=== PATIENT | female | born 1985 | race African-American/Black ===

== ENCOUNTER → 2017-01-19 | Outpatient (CLI) | payer OTHER | LOC: FIMAGING 14:23 | PROVIDERS: ATTEND Advanced Practice Midwife | DX: N63 Unspecified lump in breast (principal) ==

== ENCOUNTER → 2017-10-19 | Outpatient (CLI) | payer OTHER | LOC: FIMAGING 07:34 | PROVIDERS: ATTEND Internal Medicine Endocrinology, Diabetes & Metabolism | DX: E04.9 Nontoxic goiter, unspecified (principal) ==

== ENCOUNTER 2017-12-09 08:48 | Emergency (ER) | payer OTHER ==
[2017-12-09] MEDS ORDERED: NS 1,000 ML IV ONE ×3 (09:03→10:58)
[2017-12-09] MEDS ORDERED: IPRATROPIUM/ALBUTEROL 3 ML DEYVIAL IH ONE (09:03)
--- NOTE | 2017-12-09 09:12 | EDPHY ---
General Time Seen by Provider: 12/09/17 09:00 Narrative: CHIEF COMPLAINT: Cough, chest pain, fever, body aches HISTORY OF PRESENT ILLNESS: Patient complains of sudden onset of cough, chest pain, fever, body aches, sore throat, runny nose. Symptoms started abruptly last night. Was described as a painful cough last night, but awoke to chest pains and persistent cough this morning. No neck pain or stiffness. Occasional headache with the cough a when her temperature seems to go up. She has nausea but no vomiting. No urinary complaints. No rash. No abdominal pain. No trauma or injury. She does have a child with similar symptoms over the past week. No other associated complaints or modifying factors. REVIEW OF SYSTEMS: Ten systems reviewed and are negative unless otherwise noted in the HPI PCP: Dr. Cao SPECIALISTS: None PAST MEDICAL HISTORY: Denies any medical history. PAST SURGICAL HISTORY: No surgical history. SOCIAL HISTORY: Nonsmoker. Lives and works here locally FAMILY HISTORY: Noncontributory EXAMINATION General Appearance: Alert, no distress Head: normocephalic, atraumatic Eyes: Pupils equal and round, no conjunctival pallor or injection ENT, Mouth: Mucous membranes moist. Uvula is midline. There is no erythema or edema. Airway is widely patent. Neck: Normal inspection, supple, non-tender. No meningeal signs Respiratory: Lungs are clear to auscultation Cardiovascular: Tachycardic rate. Regular rhythm. No murmur. Good signs of perfusion Gastrointestinal: Abdomen is soft and nontender. No tympany. No rigidity. No guarding. Back: non-tender, no bony abnormalities Neurological: GCS 15. A&O, nonfocal, normal gait. Strength is symmetric in the limbs Skin: Warm and dry, no rash no petechiae or purpura Extremities: Nontender, no pedal edema. Symmetric range of motion of the upper lower extremities Psychiatric: Mood and affect normal DIFFERENTIAL DIAGNOSES: Including but not limited to influenza, bronchitis, pneumonia upper respiratory infection, lower respiratory infection, pleurisy MDM: 9:05 a.m. Flu-like symptoms with auscultation that suggest possible pneumonia on the right side. She is tachycardic but she is not febrile or hypoxemic. Respiratory rate is normal. Laboratory studies ordered. IV fluid ordered. EKG ordered. Chest x-ray ordered. She is in no acute distress and does not require supplemental oxygen. 9:30 a.m. EKG reveals sinus tachycardia. No ischemia or ST elevation. CBC reveals no leukocytosis but does have a shift consistent with viral illness. Remainder of labs pending. Chest x-ray as read by me reveals no pneumonia. 9:40 a.m. Patient re-evaluated. She remains tachycardic with IV fluid infusing. No acute distress. Chemistry returns with mild hypokalemia. 10:00 a.m. Patient is positive for influenza A. I have re-evaluated. She is complaining of back pain. She informs me that she cannot take pills, thus I have ordered IV Toradol as well Klor packets (40meq). Second L IV fluid ordered. 10:25 a.m. Chest x-ray has been read by radiologist as no focal pneumonia. She continues to receive IV fluid. 11:00 a.m. Patient re-evaluated. Second L of IV fluid complete. Heart rate is 120 beats per minute. Her back pain is now resolved. She has also received 40 mEq of p.o. Klor. She appears to be somewhat anxious about this. We discussed the nature of influenza, Tamiflu and symptomatic care. She does not want to take the Tamiflu. We discussed 3 L of IV fluid. 11:30 a.m. Patient re-evaluated. Third L IV fluid infusing. She is starting to feel better. I discussed this case with Dr. Blair. Patient does have a cause for her tachycardia with influenza. We are in agreement that she does not warrant any further testing at this time. I discussed with the patient discharged home with symptomatic care. Because she does not take pills, we discussed taking liquid Tylenol and ibuprofen. I provided short course of antitussive medication. We discussed ED precautions. We discussed improving her food intake due to the mild hypokalemia. We discussed follow up with primary care physician. She is discharged home stable condition. EKG interpretation: Dr. Blair Sinus tachycardia. No ST elevation SUPERVISION: Patient was independently examined, but I discussed the case with my secondary supervising physician Dr. Blair - Diagnostics Imaging Results: Imaging Impressions Chest X-Ray 12/09/17 09:02 Impression: No focal pneumonia. - History Smoking Status: Never smoked - Objective Vital Signs: Initial Vital Signs Temperature (C) 98.4 F 12/09/17 08:51 Heart Rate 139 H 12/09/17 08:51 Respiratory Rate 18 12/09/17 08:51 Blood Pressure 100/77 12/09/17 08:51 O2 Sat (%) 97 12/09/17 08:51 O2 Delivery Mode Room Air Allergies/Adverse Reactions: No Known Allergies Allergy (Verified 12/09/17 08:50) Home Medications: Medication Instructions Recorded Codeine/Promethazine [Phenergan W/ 5 ml PO Q6H #120 ml 12/09/17 Codeine Syrup] Laboratory Results: Laboratory Results 12/09/17 09:10 12/09/17 09:10 12/09/17 12/09/17 12/09/17 09:10 09:10 09:10 WBC RBC Hgb Hct MCV MCH MCHC RDW Plt Count MPV Neut % (Auto) Lymph % (Auto) [place] % (Auto) Eos % (Auto) Baso % (Auto) Nucleat RBC Rel Count Absolute Neuts (auto) Absolute Lymphs (auto) Absolute Monos (auto) Absolute Eos (auto) Absolute Basos (auto) Absolute Nucleated RBC Immature Gran % Immature Gran # Sodium 143 mEq/L mEq/L (135-145) Potassium 3.2 mEq/L L mEq/L (3.5-5.2) Chloride 107 mEq/L mEq/L (97-110) Carbon Dioxide 18 mEq/l L mEq/l (22-31) Anion Gap 18 mEq/L H mEq/L (8-16) BUN 5 mg/dL L mg/dL (7-23) Creatinine 0.9 mg/dL mg/dL (0.6-1.0) Estimated GFR > 60 Glucose 91 mg/dL mg/dL (70-100) Calcium 10.1 mg/dL mg/dL (8.5-10.4) Lipase 39 IU/L IU/L (23-300) Beta HCG, Qual NEGATIVE Nasal Influenza A PCR FLU A DETECTED H (NEGATIVE) Nasal Influenza B PCR NEGATIVE FOR FLU B (NEGATIVE) 12/09/17 09:10 WBC 5.59 10^3/uL 10^3/uL (3.80-9.50) RBC 4.41 10^6/uL 10^6/uL (4.18-5.33) Hgb 14.3 g/dL g/dL (12.6-16.3) Hct 42.9 % % (38.0-47.0) MCV 97.3 fL fL (81.5-99.8) MCH 32.4 pg pg (27.9-34.1) MCHC 33.3 g/dL g/dL (32.4-36.7) RDW 12.9 % % (11.5-15.2) Plt Count 192 10^3/uL 10^3/uL (150-400) MPV 10.1 fL fL (8.7-11.7) Neut % (Auto) 87.2 % H % (39.3-74.2) Lymph % (Auto) 6.8 % L % (15.0-45.0) [place] % (Auto) 5.2 % % (4.5-13.0) Eos % (Auto) 0.2 % L % (0.6-7.6) Baso % (Auto) 0.4 % % (0.3-1.7) Nucleat RBC Rel Count 0.0 % % (0.0-0.2) Absolute Neuts (auto) 4.88 10^3/uL 10^3/uL (1.70-6.50) Absolute Lymphs (auto) 0.38 10^3/uL L 10^3/uL (1.00-3.00) Absolute Monos (auto) 0.29 10^3/uL L 10^3/uL (0.30-0.80) Absolute Eos (auto) 0.01 10^3/uL L 10^3/uL (0.03-0.40) Absolute Basos (auto) 0.02 10^3/uL 10^3/uL (0.02-0.10) Absolute Nucleated RBC 0.00 10^3/uL 10^3/uL (0-0.01) Immature Gran % 0.2 % % (0.0-1.1) Immature Gran # 0.01 10^3/uL 10^3/uL (0.00-0.10) Sodium Potassium Chloride Carbon Dioxide Anion Gap BUN Creatinine Estimated GFR Glucose Calcium Lipase Beta HCG, Qual Nasal Influenza A PCR Nasal Influenza B PCR Medications Given: Discontinued Medications Albuterol/Ipratropium (Duoneb) 3 ml IH EDNOW ONE Stop: 12/09/17 09:04 Last Admin: 12/09/17 09:46 Dose: 3 ml Sodium Chloride (Ns) 1,000 mls @ 0 mls/hr IV EDNOW ONE; Wide Open PRN Reason: Protocol Stop: 12/09/17 09:04 Last Admin: 12/09/17 09:12 Dose: 1,000 mls Sodium Chloride (Ns) 1,000 mls @ 0 mls/hr IV EDNOW ONE; Wide Open PRN Reason: Protocol Stop: 12/09/17 10:08 Last Admin: 12/09/17 10:13 Dose: 1,000 mls Sodium Chloride (Ns) 1,000 mls @ 0 mls/hr IV EDNOW ONE; Wide Open PRN Reason: Protocol Stop: 12/09/17 10:59 Last Admin: 12/09/17 11:00 Dose: 1,000 mls Ketorolac Tromethamine (Toradol) 30 mg IVP EDNOW ONE Stop: 12/09/17 10:07 Last Admin: 12/09/17 10:13 Dose: 30 mg Departure - Departure Disposition: Home, Routine, Self-Care Clinical Impression: Influenza A, Hypokalemia Condition: Good Instructions: Influenza (ED) Additional Instructions: 1. Ibuprofen 600 mg every 8 hr as needed for 2. Tylenol 500-1000 mg every 6 hr 3. Prescription medication as prescribed as needed 4. Follow up with primary care physician for outpatient care 5. ED precautions as discussed Referrals: NONE *PRIMARY CARE P,. [Primary Care Provider] - As per Instructions Prescriptions: Codeine/Promethazine [Phenergan W/ Codeine Syrup] 5 ml PO Q6H #120 ml
[2017-12-09 09:22] LABS: PLATELET COUNT 192 10^3/uL (150-400)
--- NOTE | 2017-12-09 09:27 | CPEKG ---
Heart Rate: 127 RR Interval: 472 P-R Interval: 160 QRSD Interval: 72 QT Interval: 308 QTC Interval: 448 P [place]: 76 QRS [place]: 45 T Wave [place]: 49 EKG Severity - OTHERWISE NORMAL ECG - EKG Impression: SINUS TACHYCARDIA Electronically Signed By: Duke Blair 09-Dec-2017 09:35:07
[2017-12-09] MEDS ORDERED: POTASSIUM CL 20 MEQ PKT PO ONE (10:06)
[2017-12-09] MEDS ORDERED: KETOROLAC 30 MG/1 ML SDV IVP ONE (10:06)
[2017-12-09] MEDS ORDERED: POTASSIUM CL 20 MEQ PKT ONE (10:07)
[2017-12-09] MEDS ORDERED: KETOROLAC 30 MG/1 ML SDV ONE (10:07)
[2017-12-09 10:33] VITALS: RESP 20
[2017-12-09 12:19] VITALS: BP 101/69; PULSE 122; TEMP 99.3; O2SAT 99
== END 2017-12-09 12:18 | disposition home or self-care (01) ==
DX: J10.1 Influenza due to other identified influenza virus with other respiratory manifestations (principal); E87.6 Hypokalemia; E86.9 Volume depletion, unspecified
CPT/HCPCS: 96374; J1885

== ENCOUNTER 2017-12-12 12:20 | Emergency (ER) | payer OTHER ==
[2017-12-12 12:26] VITALS: TEMP 98.6
--- NOTE | 2017-12-12 13:26 | EDPHY ---
H & P Stated Complaint: + flu here 12/10;returns today w/different c/o; noticed UTI sxs today Time Seen by Provider: 12/12/17 13:25 - Personal History LMP (Females 10-55): 15-21 Days Ago Current Tetanus Diphtheria and Acellular Pertussis (TDAP): Yes - Medical/Surgical History Hx Asthma: No Hx Chronic Respiratory Disease: No Hx Diabetes: No Hx Cardiac Disease: No Hx Renal Disease: No Hx Cirrhosis: No Hx Alcoholism: No Hx HIV/AIDS: No Hx Splenectomy or Spleen Trauma: No Other PMH: breast lump - Social History Smoking Status: Never smoked Constitutional: Initial Vital Signs Temperature (C) 37 C 12/12/17 12:22 Heart Rate 132 H 12/12/17 12:22 Respiratory Rate 16 12/12/17 12:22 Blood Pressure 116/78 12/12/17 12:22 O2 Sat (%) 97 12/12/17 12:22 O2 Delivery Mode Room Air Allergies/Adverse Reactions: No Known Allergies Allergy (Verified 12/12/17 12:22) Home Medications: Medication Instructions Recorded Codeine/Promethazine [Phenergan W/ 5 ml PO Q6H #120 ml 12/09/17 Codeine Syrup] Medical Decision Making ED Course/Re-evaluation: CHIEF COMPLAINT: Hematuria, flu symptoms. HISTORY OF PRESENT ILLNESS: This patient is a 32 year old female arriving with her family complaining of flu symptoms and hematuria. She was diagnosed with influenza two days ago. Last night, her cough worsened and she has developed pain in her lower back and epigastric region due to repeated coughing. Today, she has noted hematuria with dark blood. She has noted some dysuria, no urgency or frequency. She has been anxious and experiencing shortness of breath due to this. She has been having a difficult time eating due to nausea. No vomiting, flank pain, chest pain, or other associated symptoms. REVIEW OF SYSTEMS: A 10 point review of systems was performed and is negative with the exception of the elements mentioned in the history of present illness. PHYSICAL EXAM: HR, BP, O2 Sat, RR. Temp noted General Appearance: Alert, well hydrated, appropriate, and non-toxic appearing. Head: Atraumatic without scalp tenderness or obvious injury Eyes: Pupils equal, round, reactive to light and accommodation, EOMI, no trauma , no injection. Ears: Clear bilaterally, no perforation, normal landmarks Nose: Atraumatic, no rhinorrhea, clear. Throat: There is no erythema or exudates, no lesions, normal tonsils, mucus membranes moist. Neck: Supple, 2+ carotid upstroke, nontender, no lymphadenopathy. Respiratory: No retractions, no distress, no wheezes, and no accessory muscle use. Lungs are clear to auscultation bilaterally. Cardiovascular: Regular rate and rhythm, no murmurs, rubs, or gallops. Bilateral carotid, radial, dorsalis pedis, and posterior tibial pulses intact. Good capillary refill all extremities. Gastrointestinal: Abdomen is soft, nontender, non-distended, no masses, no rebound, no guarding, no peritoneal signs. Musculoskeletal: Normal active ROM of all extremities, atraumatic. Neurological: Alert, appropriate, and interactive. The patient has normal DTRs and non-focal cranial nerves, motor, sensory, and cerebellar exam. Skin: No rashes, good turgor, no nodules on palpation. Past medical history: Breast lump. Past surgical history: Noncontributory. Family history: Noncontributory. Social history: Family at bedside. . Lives in [place]. DIFFERENTIAL DIAGNOSIS: The differential diagnosis for the patient's fever included but was not limited to pneumonia, urinary tract infection, viral syndrome, meningitis, and sepsis. MEDICAL DECISION MAKIN32 y/o female presents with flu symptoms and new onset hematuria. Lungs are clear to auscultation but patient has had persistent cough. Plan to administer 10mg IV Decadron. 2L IV NS. Plan for UA. Blood and ketones present in urine, no evidence of UTI. 14:47 Reassessed patient. Discussed results. She is feeling better following fluid administration. Plan to discharge home in good condition when IVF complete. Follow up an return precautions discussed. The patient is comfortable with this plan. - Data Points Laboratory Results: 12/12/17 13:30 Urine Color YELLOW Urine Appearance CLEAR Urine pH 7.0 (5.0-7.5) Ur Specific [place] 1.005 (1.002-1.030) Urine Protein NEGATIVE (NEGATIVE) Urine Ketones 1+ H (NEGATIVE) Urine Blood 2+ H (NEGATIVE) Urine Nitrate NEGATIVE (NEGATIVE) Urine Bilirubin NEGATIVE (NEGATIVE) Urine Urobilinogen NEGATIVE EU EU (0.2-1.0) Ur Leukocyte Esterase NEGATIVE (NEGATIVE) Urine RBC 1-3 /hpf /hpf (0-3) Urine WBC 1-3 /hpf /hpf (0-3) Ur Epithelial Cells TRACE /lpf /lpf (NONE-1+) Urine Mucus TRACE /lpf /lpf (NONE-1+) Urine Glucose NEGATIVE (NEGATIVE) Medications Given: Discontinued Medications Albuterol/Ipratropium (Duoneb) 3 ml IH EDNOW ONE Stop: 12/12/17 13:42 Last Admin: 12/12/17 13:49 Dose: 3 ml Dexamethasone (Decadron Injection) 10 mg IVP EDNOW ONE Stop: 12/12/17 13:44 Last Admin: 12/12/17 13:48 Dose: 10 mg Sodium Chloride (Ns) 1,000 mls @ 0 mls/hr IV EDNOW ONE; Wide Open PRN Reason: Protocol Stop: 12/12/17 13:43 Last Admin: 12/12/17 13:50 Dose: 1,000 mls Sodium Chloride (Ns) 1,000 mls @ 0 mls/hr IV EDNOW ONE; Wide Open PRN Reason: Protocol Stop: 12/12/17 13:43 Last Admin: 12/12/17 14:46 Dose: 1,000 mls Ketorolac Tromethamine (Toradol) 30 mg IVP EDNOW ONE Stop: 12/12/17 13:43 Last Admin: 12/12/17 13:48 Dose: 30 mg Departure - Departure Disposition: Home, Routine, Self-Care Clinical Impression: Influenza A, Dehydration, Bronchitis with influenza Condition: Good Instructions: Dehydration (ED), Influenza (ED) Additional Instructions: Use ibuprofen and Tylenol as needed for fever and body aches. Follow up with your primary care physician within 2-3 days hours for reevaluation. Drink plenty of fluids. Try soft foods as tolerated. Return to the emergency department immediately for high fever, severe headache or neck pain, difficulty breathing, abdominal pain, rash or other worsening of condition. Referrals: Emani Acevedo MD [Primary Care Provider] - As per Instructions Report Scribed for: Rayshawn Westbrook Report Scribed by: Candace Cortés Date of Report: 12/12/17 Time of Report: 14:31
[2017-12-12] MEDS ORDERED: IPRATROPIUM/ALBUTEROL 3 ML DEYVIAL IH ONE (13:41)
[2017-12-12] MEDS ORDERED: KETOROLAC 30 MG/1 ML SDV IVP ONE (13:42)
[2017-12-12] MEDS ORDERED: NS 1,000 ML IV ONE ×2 (13:42)
[2017-12-12] MEDS ORDERED: DEXAMETHASONE 10 MG/ML VIAL IVP ONE (13:43)
[2017-12-12 14:49] VITALS: RESP 17
[2017-12-12 16:11] VITALS: BP 163/81; PULSE 119; O2SAT 94
== END 2017-12-12 16:11 | disposition home or self-care (01) ==
DX: J11.1 Influenza due to unidentified influenza virus with other respiratory manifestations (principal); J40 Bronchitis, not specified as acute or chronic; E86.0 Dehydration; E86.9 Volume depletion, unspecified
CPT/HCPCS: 96374; J1100; J1885

== ENCOUNTER 2017-12-15 06:19 | Emergency (ER) | payer OTHER ==
[2017-12-15 06:27] VITALS: TEMP 98.6
--- NOTE | 2017-12-15 07:20 | EDPHY ---
H & P Stated Complaint: DX FLU/TROUBLE BREATHING/ANXIETY Time Seen by Provider: 12/15/17 07:13 HPI/ROS: CHIEF COMPLAINT: Cough, dyspnea, mild anxiety exacerbation HISTORY OF PRESENT ILLNESS: The patient was diagnosed with influenza earlier in the week. She presents to the ED today after she experienced cough last night which precipitated mild dyspnea and anxiety. The patient does have a history of anxiety and occasionally uses Ativan as needed. She currently does not have a prescription for this medication. The patient has not taken Tamiflu. She is also not used albuterol. She does have a remote history of exercise-induced asthma. She has a history of chronic migraines and takes Zomig for this condition. She denies any acute abdominal pain, vomiting or other concerns. REVIEW OF SYSTEMS: A comprehensive 10 point review of systems is otherwise negative aside from elements mentioned in the history of present illness. Source: Patient Exam Limitations: No limitations - Personal History LMP (Females 10-55): 8-14 Days Ago Current Tetanus Diphtheria and Acellular Pertussis (TDAP): Yes - Medical/Surgical History Hx Asthma: No Hx Chronic Respiratory Disease: No Hx Diabetes: No Hx Cardiac Disease: No Hx Renal Disease: No Hx Cirrhosis: No Hx Alcoholism: No Hx HIV/AIDS: No Hx Splenectomy or Spleen Trauma: No Other PMH: breast lump - Social History Smoking Status: Never smoked - Physical Exam Exam: General Appearance: Alert, no distress Eyes: Pupils equal and round no pallor or injection ENT, Mouth: Mucous membranes moist Respiratory: There are no retractions, lungs are clear to auscultation Cardiovascular: Regular rate and rhythm Gastrointestinal: Abdomen is soft and nontender, no masses, bowel sounds normal Neurological: A&O, normal motor function, normal sensory exam, normal cranial nerves Skin: Warm and dry, no rashes Musculoskeletal: Neck is supple nontender Extremities: symmetrical, full range of motion Constitutional: Initial Vital Signs Temperature (C) 37.0 C 12/15/17 06:24 Heart Rate 127 H 12/15/17 06:24 Respiratory Rate 20 12/15/17 06:24 Blood Pressure 112/72 12/15/17 06:24 O2 Sat (%) 92 12/15/17 06:24 O2 Delivery Mode Room Air Allergies/Adverse Reactions: No Known Allergies Allergy (Verified 12/12/17 12:22) Home Medications: Medication Instructions Recorded Albuterol [Ventolin Hfa Inhaler] 2 puffs IH QID PRN #1 mdi 12/15/17 LORazepam [Ativan] 1 mg PO TID PRN #20 tab 12/15/17 Medical Decision Making ED Course/Re-evaluation: I reviewed the patient's past medical records. The patient is clinically stable. Heart rate on my check is 95. Oxygen saturation is normal. The patient did undergo a repeat chest x-ray which demonstrates no evidence of focal pneumonia. The patient will be given a prescription for albuterol and a short course of Ativan to use as needed. She will follow up with her primary care provider as scheduled. She has been instructed to return to the ED for markedly worsening symptoms or other concerns. Differential Diagnosis: Differential diagnosis considered includes asthma, pneumonia, anxiety Departure - Departure Disposition: Home, Routine, Self-Care Clinical Impression: Influenza, Dyspnea, Anxiety Condition: Good Instructions: Influenza (ED) Additional Instructions: 1. Please use albuterol as needed for cough and difficulty breathing. 2. Ativan as needed for anxiety. 3. Please follow up with your primary care provider for a recheck as needed. 4. Return to the ED for markedly worsening symptoms or other concerns. 5. Your chest x-ray shows no evidence of pneumonia today. Referrals: Emani Acevedo MD [Primary Care Provider] - As per Instructions Prescriptions: Albuterol [Ventolin Hfa Inhaler] 2 puffs IH QID PRN #1 mdi PRN Reason: for shortness of breath LORazepam [Ativan] 1 mg PO TID PRN #20 tab PRN Reason: for anxiety
[2017-12-15] MEDS ORDERED: IPRATROPIUM/ALBUTEROL 3 ML DEYVIAL IH ONE (07:56)
[2017-12-15] MEDS ORDERED: NS 1,000 ML IV ONE ×2 (07:56→09:34)
[2017-12-15] MEDS ORDERED: LORazepam 2 MG/ML INJ IVP ONE (08:44)
--- NOTE | 2017-12-15 08:48 | CPEKG ---
Heart Rate: 118 RR Interval: 508 P-R Interval: 176 QRSD Interval: 76 QT Interval: 308 QTC Interval: 432 P [place]: 73 QRS [place]: 67 T Wave [place]: 52 EKG Severity - OTHERWISE NORMAL ECG - EKG Impression: SINUS TACHYCARDIA Electronically Signed By: Arley Anderson 15-Dec-2017 10:09:27
[2017-12-15 08:49] LABS: PLATELET COUNT 185 10^3/uL (150-400)
[2017-12-15] MEDS ORDERED: IOPAMIDOL (ISOVUE 370) 100 ML BTL IV ONE (10:34)
[2017-12-15 10:39] VITALS: RESP 16
[2017-12-15] MEDS ORDERED: IBUPROFEN 600 MG TAB PO ONE (11:15)
[2017-12-15] MEDS ORDERED: IBUPROFEN SUSP 100 MG/5 ML UDCUP PO ONE (11:22)
[2017-12-15 12:09] VITALS: BP 132/86; PULSE 120; O2SAT 93
== END 2017-12-15 12:07 | disposition home or self-care (01) ==
DX: J11.1 Influenza due to unidentified influenza virus with other respiratory manifestations (principal); R06.00 Dyspnea, unspecified; F41.9 Anxiety disorder, unspecified; E86.9 Volume depletion, unspecified
CPT/HCPCS: 96374; J2060; Q9967